=== PATIENT | female | born 1995 | race Caucasian/White ===

== ENCOUNTER 2019-08-18 14:35 | Emergency (ER) | payer MEDICAID ==
[~2019-08-18] VITALS: Ht 162.6 cm; Wt 104.3 kg
[~2019-08-18 14:35] MED LIST: PREN-385 PO
--- NOTE | 2019-08-18 14:45 | NUR ---
Pt taken to bed 6.
[2019-08-18 14:46] VITALS: BP 133/87
--- NOTE | 2019-08-18 14:50 | NUR ---
C/O SORE THROAT AND NAUSEA X4 DAYS. PT DENIES FEVER. REPORTS INABILITY TO EAT DUE TO PAIN. BED IN LOW POSITION, SIDE RAIL UP X1.
[2019-08-18] MEDS ORDERED: IBUPROFEN 400 MG TAB PO ONE (16:05)
[2019-08-18] MEDS ORDERED: ACETAMINOPHEN EXTRA STRENGTH 500 MG TAB PO ONE (16:05)
--- NOTE | 2019-08-18 16:05 | NUR ---
ERMD AT BEDSIDE
--- NOTE | 2019-08-18 16:24 | NUR ---
STREP SWAB COLLECTED AND HANDED TO EARL FROM LAB
[2019-08-18 17:05] VITALS: BP 131/87
== END 2019-08-18 17:11 | disposition home or self-care (01) ==
LOC: MED 14:35
DX: J03.90 Acute tonsillitis, unspecified (principal); B34.9 Viral infection, unspecified
CPT/HCPCS: 87081; 99283

== ENCOUNTER 2021-03-14 20:26 | Emergency (ER) | payer MEDICAID ==
[~2021-03-14] VITALS: Ht 162.6 cm; Wt 113.4 kg
[2021-03-14 20:49] VITALS: BP 153/96
--- NOTE | 2021-03-14 21:55 | NUR ---
pt ambulated to bed #11
[2021-03-14 22:09] LABS: APPEARANCE,URINE CLEAR (CLEAR); BILIRUBIN,URINE NEGATIVE (NEGATIVE); BLOOD, URINE 1+ (NEGATIVE); COLOR,URINE YELLOW (YELLOW); LEUKOCYTE ESTERASE ,URINE NEGATIVE (NEGATIVE); NITRITE, URINE NEGATIVE (NEGATIVE); PH,URINE 6.5 (5.0-9.0); UGLUCOSE NEGATIVE (NEGATIVE)
[2021-03-14 22:25] LABS: WBC,URINE NONE SEEN /HPF (0-5)
--- NOTE | 2021-03-14 22:40 | NUR ---
25 y/o female bib self for lower abdominal pain x 1month. Patient states, " i think it could have pulled something, or it could have been from the last time i went hiking". Pain is an 8/10 sharp pain, starting from the right fatima to the right hip and all throughout the lower back. Pt. states "it hurts to walk". Patient took a tylenol with no relief. CMS INTACT. MOTOR LIMITED D/T PAIN. STEADY GAIT NOTED WITH A LIMP GAIT. A&OX4. GCS 15. SKIN WNL. NO OBVIOUS DEFORMITY NOTED. CAP REFILL < 3. BED LOCKED IN PLACE AND AT THE LOWEST POSITION. SIDE RAILS UP X2. CALL LIGHT WITHIN REACH. nkda pmh: denies meds: denies
[2021-03-14] MEDS: ONDANSETRON 4 MG ODT PO ONE (23:02)
[2021-03-14] MEDS: KETOROLAC 60 MG/2 ML VIAL IM ONE (23:02)
[2021-03-14] MEDS: HYDROcodone/APAP 5/325 MG 1 TAB TAB PO ONE (23:03)
[2021-03-14] MEDS ORDERED: ACET-8386 PO (23:04)
[2021-03-14] MEDS ORDERED: CYCL-711 PO (23:04)
--- NOTE | 2021-03-14 23:18 | NUR ---
Patient discharged with v/s stable. Written and verbal after care instructions given and explained. Patient alert, oriented and verbalized understanding of instructions. Ambulatory with steady gait. All questions addressed prior to discharge. ID band removed. Patient advised to follow up with PMD. Rx of NORCO, FLEXERIL given. Patient educated on indication of medication including possible reaction and side effects. Opportunity to ask questions provided and answered.
[2021-03-14 23:23] VITALS: BP 153/96
== END 2021-03-14 23:18 | disposition home or self-care (01) ==
LOC: MED 20:26
DX: M62.830 Muscle spasm of back (principal); Z79.899 Other long term (current) drug therapy
CPT/HCPCS: 81001; 81025; 96372; 99283; J1885; Q0162

== ENCOUNTER 2022-01-02 10:46 | Emergency (ER) | payer MEDICAID ==
[~2022-01-02] VITALS: Ht 162.6 cm; Wt 117.9 kg
[~2022-01-02 10:46] MED LIST changes: +ACET-8386 PO; +CYCL-711 PO
[2022-01-02 10:59] VITALS: BP 139/82
--- NOTE | 2022-01-02 11:45 | NUR ---
PT ABMULATED TO BED STEADILY.
--- NOTE | 2022-01-02 11:53 | NUR ---
C/O L EAR PAIN S/P COTTON SWAB STUCK INSIDE LEFT EAR X THIS MORNING. PT STATES USES Q-TIPS REGULARLY. THIS MORNING WAS CEANING HER EARS WHEN ONE OF NORMA COTTON TIPS WAS MISSING WHEN SHE PULLED IT OUT OF HER EAR. PT STATES A PAIN OF 5/10. PT RESTING IN BED. PMH: ASTHMA
--- NOTE | 2022-01-02 12:12 | NUR ---
DR CROWELL AT BEDSIDE ASSESSING PT
--- NOTE | 2022-01-02 12:13 | NUR ---
CROWELL BEDSIDE EVALUATING PT
[2022-01-02] MEDS ORDERED: IBUP-2213 PO (13:10)
[2022-01-02 13:29] VITALS: BP 139/82
== END 2022-01-02 13:29 | disposition home or self-care (01) ==
LOC: MED 10:46
DX: T16.2XXA Foreign body in left ear, initial encounter (principal); J45.909 Unspecified asthma, uncomplicated; Z79.1 Long term (current) use of non-steroidal anti-inflammatories (NSAID); Z79.899 Other long term (current) drug therapy; Z79.891 Long term (current) use of opiate analgesic; X58.XXXA Exposure to other specified factors, initial encounter; Y92.89 Other specified places as the place of occurrence of the external cause; Y93.89 Activity, other specified; Y99.8 Other external cause status
CPT/HCPCS: 69200; 99282; 99284

== ENCOUNTER 2022-10-25 16:21 | Emergency (ER) | payer MEDICAID ==
[~2022-10-25] VITALS: Ht 162.6 cm; Wt 110.7 kg
[~2022-10-25 16:21] MED LIST changes: -ACET-8386 PO; +ACET-8905 PO; +IBUP-2213 PO
[2022-10-25 17:10] VITALS: BP 137/98
--- NOTE | 2022-10-25 18:30 | NUR ---
NA 1830
--- NOTE | 2022-10-25 19:00 | NUR ---
NA 190
--- NOTE | 2022-10-25 19:16 | NUR ---
NA 190
--- NOTE | 2022-10-25 19:25 | NUR ---
PATIENT LEFT WITHOUT BEING SEEN BY DR. ALVARADO. NO FURTHER CARE PROVIDED FOR PATIENT.
[2022-10-26] MEDS ORDERED: IBUP-2213 PO (11:25)
[2022-10-26] MEDS ORDERED: CEPH-588 PO (11:25)
== END 2022-10-25 19:25 | disposition left against medical advice (07) ==
LOC: MED 16:21
DX: R10.30 Lower abdominal pain, unspecified (principal); R42 Dizziness and giddiness; Z53.21 Procedure and treatment not carried out due to patient leaving prior to being seen by health care provider
CPT/HCPCS: 81025; 99281

== ENCOUNTER 2022-10-26 09:19 | Emergency (ER) | payer MEDICAID ==
[~2022-10-26] VITALS: Ht 162.6 cm; Wt 111.1 kg
[2022-10-26 09:23] VITALS: BP 138/69
[2022-10-26] MEDS ORDERED: KETOROLAC 15 MG/ML VIAL IM ONE (10:05)
[2022-10-26 10:09] LABS: APPEARANCE,URINE CLEAR (CLEAR); BILIRUBIN,URINE NEGATIVE (NEGATIVE); BLOOD, URINE 1+ (NEGATIVE); COLOR,URINE YELLOW (YELLOW); LEUKOCYTE ESTERASE ,URINE NEGATIVE (NEGATIVE); NITRITE, URINE NEGATIVE (NEGATIVE); UGLUCOSE NEGATIVE (NEGATIVE)
[2022-10-26 10:22] LABS: BASOPHILS % (AUTO) 0.5 % (0.0-2.0); EOSINOPHILS # (AUTO) 0.1 K/uL (0-0.4); EOSINOPHILS % (AUTO) 2.4 % (0.0-4.0); HEMATOCRIT 40.3 % (36-48); HEMOGLOBIN 13.3 g/dL (12.0-16.0); LYMPHOCYTES # (AUTO) 2.1 K/uL (2.5-16.5); LYMPHOCYTES % (AUTO) 35.3 % (20.5-51.1); MEAN CORPUSCULAR HEMOGLOBIN 28 pg (27-31); MEAN CORPUSCULAR HGB CONC 33 g/dL (33-37); MEAN CORPUSCULAR VOLUME 83.3 fL (80-94); MONOCYTES # (AUTO) 0.4 K/uL (0.8-1.0); MONOCYTES % (AUTO) 5.8 % (1.7-9.3); NEUTROPHILS # (AUTO) 3.4 K/uL (1.8-7.7); PLATELET COUNT (AUTO) 252 K/uL (140-450); RED BLOOD CELL COUNT(AUTO) 4.84 MIL/uL (4.20-5.40); RED CELL DISTRIBUTION WIDTH 14.3 % (11.6-13.7); WHITE BLOOD COUNT (AUTO) 6.1 K/uL (4.8-10.8)
[2022-10-26 10:23] LABS: RBC,URINE 0-5 /HPF (0-5)
[2022-10-26 10:35] LABS: ALBUMIN 3.7 g/dL (3.4-5.0); ANION GAP 9.8 (8-16); CARBON DIOXIDE 28.7 mmol/L (21-32); CREATININE 0.8 mg/dL (0.6-1.3); POTASSIUM 3.5 mmol/L (3.5-5.1); TOTAL BILIRUBIN 0.3 mg/dL (0.0-1.0)
[2022-10-26] MEDS ORDERED: CEPH-588 PO (11:25)
[2022-10-26] MEDS ORDERED: IBUP-2213 PO (11:25)
--- NOTE | 2022-10-26 11:35 | NUR ---
Patient discharged with v/s stable. Written and verbal after care instructions given and explained for Pelvic Pain, Female and Urinary Tract Infection, Adult. Patient alert, oriented and verbalized understanding of instructions. Ambulatory with steady gait. All questions addressed prior to discharge. ID band removed. Patient advised to follow up with PMD. Rx of Ibuprofen, Cephalexin given. Patient educated on indication of medication including possible reaction and side effects. Opportunity to ask questions provided and answered. Copies of US, blood work, UA and work note given to patient.
== END 2022-10-26 11:35 | disposition home or self-care (01) ==
LOC: MED 09:19
DX: N30.01 Acute cystitis with hematuria (principal); R10.2 Pelvic and perineal pain; J45.909 Unspecified asthma, uncomplicated; Z98.890 Other specified postprocedural states; Z79.899 Other long term (current) drug therapy; Z79.2 Long term (current) use of antibiotics; Z79.1 Long term (current) use of non-steroidal anti-inflammatories (NSAID); Z79.891 Long term (current) use of opiate analgesic
CPT/HCPCS: 36415; 76830; 80053; 81001; 81025; 83690; 85025; 87086; 93976; 96372; 99285; J1885; Q0092

== ENCOUNTER 2023-07-03 12:27 | Emergency (ER) | payer MEDICAID ==
[~2023-07-03] VITALS: Ht 162.6 cm; Wt 114.8 kg
[~2023-07-03 12:27] MED LIST changes: +CEPH-588 PO
[2023-07-03 13:08] VITALS: BP 110/58; PULSE 80; RESP 20; TEMP 98.4; O2SAT 98
[2023-07-03] MEDS ORDERED: DICYCLOMINE HCL LIQUID 20 MG, ALUMINUM HYD/MAG/SIMETHICONE 30 ML, LIDOCAINE VISCOUS 2% ... PO ONE ×3 (15:20)
[2023-07-03] MEDS ORDERED: ONDANSETRON 4 MG ODT PO ONE (15:20)
[2023-07-03 16:00] VITALS: BP 110/58; PULSE 80; RESP 20; TEMP 98.4; O2SAT 98
== END 2023-07-03 16:40 | disposition left against medical advice (07) ==
LOC: MED 12:27
DX: R11.2 Nausea with vomiting, unspecified (principal); R19.7 Diarrhea, unspecified; R10.13 Epigastric pain; E11.9 Type 2 diabetes mellitus without complications; Z79.1 Long term (current) use of non-steroidal anti-inflammatories (NSAID); Z79.2 Long term (current) use of antibiotics; Z79.899 Other long term (current) drug therapy
CPT/HCPCS: 81025; 99282

== ENCOUNTER 2024-02-01 12:21 | Emergency (ER) | payer MEDICAID ==
[~2024-02-01] VITALS: Ht 162.6 cm; Wt 101.2 kg
[~2024-02-01 12:21] MED LIST changes: +ACET-5629 PO; -ACET-8905 PO; -CEPH-588 PO; -CYCL-711 PO; +METF-1139 PO
[2024-02-01 12:34] VITALS: BP 147/100; PULSE 87; RESP 20; TEMP 97.9; O2SAT 99
[2024-02-01] MEDS ORDERED: CEPH-588 PO (13:04)
[2024-02-01 13:43] VITALS: BP 147/85; PULSE 77; RESP 16; TEMP 98; O2SAT 99
== END 2024-02-01 13:43 | disposition home or self-care (01) ==
LOC: MED 12:21
DX: O00.80 Other ectopic pregnancy without intrauterine pregnancy (principal); O08.0 Genital tract and pelvic infection following ectopic and molar pregnancy; N83.201 Unspecified ovarian cyst, right side; J45.909 Unspecified asthma, uncomplicated; E11.9 Type 2 diabetes mellitus without complications; Z48.00 Encounter for change or removal of nonsurgical wound dressing; Z79.4 Long term (current) use of insulin; Z79.899 Other long term (current) drug therapy
CPT/HCPCS: 99283

== ENCOUNTER 2024-02-19 06:47 | Emergency (ER) | payer MEDICAID ==
[~2024-02-19] VITALS: Ht 162.6 cm; Wt 106.1 kg
[~2024-02-19 06:47] MED LIST changes: +CEPH-588 PO
[2024-02-19 06:56] VITALS: BP 137/74; PULSE 82; RESP 16; TEMP 98.9; O2SAT 99
[2024-02-19] MEDS ORDERED: SULF-58 PO (07:13)
[2024-02-19 07:29] VITALS: BP 161/67; PULSE 59; RESP 16; TEMP 37.16964; O2SAT 99
== END 2024-02-19 07:29 | disposition home or self-care (01) ==
LOC: MED 06:47
DX: Z48.00 Encounter for change or removal of nonsurgical wound dressing (principal); J45.909 Unspecified asthma, uncomplicated; E11.9 Type 2 diabetes mellitus without complications; Z79.1 Long term (current) use of non-steroidal anti-inflammatories (NSAID); Z79.2 Long term (current) use of antibiotics; Z79.84 Long term (current) use of oral hypoglycemic drugs; Z79.899 Other long term (current) drug therapy
CPT/HCPCS: 99283

== ENCOUNTER 2024-05-16 13:51 | Inpatient (IN) | payer MEDICAID ==
[~2024-05-16] VITALS: Ht 162.6 cm; Wt 108.9 kg
[~2024-05-16 13:51] MED LIST changes: +SULF-58 PO
[2024-05-16 14:38] VITALS: BP 131/84; PULSE 86; RESP 20; TEMP 98.8; O2SAT 100
[2024-05-16 15:35] LABS: BASOPHILS % (AUTO) 0.2 % (0.0-2.0); EOSINOPHILS # (AUTO) 0.1 K/uL (0-0.4); EOSINOPHILS % (AUTO) 0.9 % (0.0-4.0); HEMATOCRIT 36.2 % (36-48); HEMOGLOBIN 11.6 g/dL (12.0-16.0); LYMPHOCYTES # (AUTO) 1.4 K/uL (2.5-16.5); LYMPHOCYTES % (AUTO) 19.7 % (20.5-51.1); MEAN CORPUSCULAR HEMOGLOBIN 24 pg (27-31); MEAN CORPUSCULAR HGB CONC 32 g/dL (33-37); MEAN CORPUSCULAR VOLUME 74.4 fL (80-94); MONOCYTES # (AUTO) 0.4 K/uL (0.8-1.0); MONOCYTES % (AUTO) 5.3 % (1.7-9.3); NEUTROPHILS # (AUTO) 5.3 K/uL (1.8-7.7); NEUTROPHILS % (AUTO) 73.9 % (42.2-75.2); PLATELET COUNT (AUTO) 334 K/uL (140-450); RED BLOOD CELL COUNT(AUTO) 4.87 MIL/uL (4.20-5.40); RED CELL DISTRIBUTION WIDTH 16.4 % (11.6-13.7); WHITE BLOOD COUNT (AUTO) 7.2 K/uL (4.8-10.8)
[2024-05-16] MEDS: ONDANSETRON 4 MG/2 ML VIAL IVP ONE (15:48)
[2024-05-16] MEDS: NACL 0.9% 1,000 ML IV SCH ×2 (15:49→19:26)
[2024-05-16 15:50] LABS: ALBUMIN 3.3 g/dL (3.4-5.0); TOTAL BILIRUBIN 0.2 mg/dL (0.0-1.0); TOTAL PROTEIN, SERUM 8.2 g/dL (6.4-8.2)
[2024-05-16 15:54] LABS: ANION GAP 9.4 (8-16); CALCIUM 8.8 mg/dL (8.5-10.1); CARBON DIOXIDE 30.1 mmol/L (21-32); CREATININE 0.8 mg/dL (0.6-1.3); POTASSIUM 3.5 mmol/L (3.5-5.1)
[2024-05-16 16:29] LABS: APPEARANCE,URINE CLEAR (CLEAR); BILIRUBIN,URINE NEGATIVE (NEGATIVE); BLOOD, URINE NEGATIVE (NEGATIVE); COLOR,URINE YELLOW (YELLOW); LEUKOCYTE ESTERASE ,URINE NEGATIVE (NEGATIVE); NITRITE, URINE NEGATIVE (NEGATIVE); PH,URINE 7.5 (5.0-9.0); PROTEIN,URINE TRACE (NEGATIVE); UGLUCOSE NEGATIVE (NEGATIVE); UROBILINOGEN,URINE 0.2 EU/dL (0.2 - 1)
[2024-05-16] MEDS: KETOROLAC 30 MG/ML VIAL IVP ONE (16:46)
[2024-05-16] MEDS ORDERED: ONDANSETRON 4 MG/2 ML VIAL IVP PRN (17:50)
[2024-05-16] MEDS ORDERED: ALBUTEROL 0.083% 2.5 MG/3 ML NEBU INH PRN (17:50)
[2024-05-16] MEDS ORDERED: MORPHINE SULFATE 2 MG/ML SYR IVP PRN (17:50)
[2024-05-16] MEDS: MORPHINE SULFATE 4 MG/ML SYR IVP ONE (18:50)
[2024-05-16] MEDS ORDERED: METF-352 PO (18:51)
[2024-05-16 20:11] VITALS: BP 130/65; PULSE 71; RESP 15; TEMP 98.3; O2SAT 100
[2024-05-17] MEDS ORDERED: AMOX1TAB8 PO (19:31)
[2024-05-17] MEDS ORDERED: IBUP-2213 PO (19:31)
== END 2024-05-16 22:57 | disposition left against medical advice (07) | DRG 532 ==
LOC: MED 13:51 → MMU 17:53 → MTU 18:30
PROVIDERS: ADMIT Student in an Organized Health Care Education/Training Program; ATTEND Student in an Organized Health Care Education/Training Program
DX: N83.511 Torsion of right ovary and ovarian pedicle (principal); E11.9 Type 2 diabetes mellitus without complications; J45.909 Unspecified asthma, uncomplicated; Z98.891 History of uterine scar from previous surgery
CPT/HCPCS: 36415; 76830; 80048; 80076; 81003; 82948; 83690; 85025; 87081; 96361; 96374; 96375; 99291; J1885; J2270; J2405

== ENCOUNTER 2024-05-17 16:42 | Emergency (ER) | payer MEDICAID ==
[~2024-05-17] VITALS: Ht 162.6 cm; Wt 106.6 kg
[~2024-05-17 16:42] MED LIST changes: +METF-352 PO
[2024-05-17 17:12] VITALS: BP 152/99; PULSE 111; RESP 18; TEMP 97.8; O2SAT 100
[2024-05-17 17:58] LABS: BASOPHILS % (AUTO) 0.3 % (0.0-2.0); EOSINOPHILS # (AUTO) 0.1 K/uL (0-0.4); EOSINOPHILS % (AUTO) 0.8 % (0.0-4.0); HEMATOCRIT 33.9 % (36-48); HEMOGLOBIN 10.8 g/dL (12.0-16.0); LYMPHOCYTES # (AUTO) 1.5 K/uL (2.5-16.5); LYMPHOCYTES % (AUTO) 21.7 % (20.5-51.1); MEAN CORPUSCULAR HEMOGLOBIN 24 pg (27-31); MEAN CORPUSCULAR HGB CONC 32 g/dL (33-37); MEAN CORPUSCULAR VOLUME 73.8 fL (80-94); MONOCYTES # (AUTO) 0.4 K/uL (0.8-1.0); MONOCYTES % (AUTO) 5.8 % (1.7-9.3); NEUTROPHILS # (AUTO) 4.9 K/uL (1.8-7.7); NEUTROPHILS % (AUTO) 71.4 % (42.2-75.2); PLATELET COUNT (AUTO) 318 K/uL (140-450); RED BLOOD CELL COUNT(AUTO) 4.59 MIL/uL (4.20-5.40); RED CELL DISTRIBUTION WIDTH 15.8 % (11.6-13.7); WHITE BLOOD COUNT (AUTO) 6.8 K/uL (4.8-10.8)
[2024-05-17 18:13] LABS: INR 0.95 (0.8-1.2); PARTIAL THROMBOPLASTIN TIME 26.1 secs (22-35.6)
[2024-05-17 18:14] VITALS: BP 152/99; PULSE 111; RESP 18; TEMP 97.8
[2024-05-17 18:19] LABS: BILIRUBIN,URINE NEGATIVE (NEGATIVE); BLOOD, URINE TRACE-I (NEGATIVE); COLOR,URINE YELLOW (YELLOW); LEUKOCYTE ESTERASE ,URINE TRACE (NEGATIVE); NITRITE, URINE NEGATIVE (NEGATIVE); PH,URINE 6.5 (5.0-9.0); PROTEIN,URINE 2+ (NEGATIVE); UGLUCOSE NEGATIVE (NEGATIVE); UROBILINOGEN,URINE 0.2 EU/dL (0.2 - 1)
[2024-05-17 18:21] LABS: ALBUMIN 3.1 g/dL (3.4-5.0); ANION GAP 10.1 (8-16); CALCIUM 8.7 mg/dL (8.5-10.1); CARBON DIOXIDE 28.7 mmol/L (21-32); CREATININE 0.9 mg/dL (0.6-1.3); POTASSIUM 3.8 mmol/L (3.5-5.1); TOTAL BILIRUBIN 0.2 mg/dL (0.0-1.0); TOTAL PROTEIN, SERUM 7.8 g/dL (6.4-8.2)
[2024-05-17 18:22] LABS: APPEARANCE,URINE HAZY (CLEAR)
[2024-05-17 18:26] LABS: BACTERIA,URINE 3+ /HPF (None Seen); MUCUS,URINE 2+ /LPF (None Seen); WBC,URINE >25 (MANY) /HPF (0-5)
[2024-05-17] MEDS ORDERED: LIDOCAINE MPF 1% 5 ML ONE (19:01)
[2024-05-17] MEDS ORDERED: cefTRIAXone 1,000 MG VIAL ONE (19:01)
[2024-05-17] MEDS: cefTRIAXone 1,000 MG in LIDOCAINE MPF 1% 2.1 ML IM ONE (19:06)
[2024-05-17 19:24] VITALS: O2SAT 100
[2024-05-17] MEDS ORDERED: AMOX1TAB8 PO (19:31)
[2024-05-17] MEDS ORDERED: IBUP-2213 PO (19:31)
== END 2024-05-17 19:51 | disposition home or self-care (01) ==
LOC: MED 16:42
DX: N83.201 Unspecified ovarian cyst, right side (principal); N39.0 Urinary tract infection, site not specified; J45.909 Unspecified asthma, uncomplicated; E11.9 Type 2 diabetes mellitus without complications; Z98.890 Other specified postprocedural states; Z79.899 Other long term (current) drug therapy
CPT/HCPCS: 36415; 76856; 80053; 81001; 81025; 83690; 85025; 85610; 85730; 86886; 86900; 86901; 93976; 96372; 99285; J0696; J2001